=== PATIENT | female | born 1965 | race Caucasian/White ===

== ENCOUNTER → 2016-09-17 | Outpatient (CLI) | payer BC | LOC: BRMIMAGING 13:34 | DX: Z12.31 Encounter for screening mammogram for malignant neoplasm of breast (principal) | CPT/HCPCS: G0202 ==

== ENCOUNTER → 2018-01-01 | Outpatient (CLI) | payer BC, OTHER | LOC: BRMIMAGING 15:15 | DX: Z12.31 Encounter for screening mammogram for malignant neoplasm of breast (principal) ==